=== PATIENT | male | born 1940 | race Caucasian/White ===

== ENCOUNTER 2022-04-28 06:20 | Inpatient (IN) | payer BC, MEDICARE ==
[2022-04-27 10:27] LABS: BASOPHILS % 0.6 % (0.0-1.0); EOSINOPHILS # (AUTO) 0.1 (0.0-0.4); EOSINOPHILS % 1.6 % (0.0-6.0); HEMATOCRIT 45.2 % (38.2-49.6); HEMOGLOBIN 15.4 g/dL (14.0-18.0); LYMPHOCYTES # (AUTO) 1.6 (1.0-3.2); LYMPHOCYTES % 23.5 % (18.0-39.1); MEAN CORPUSCULAR HEMOGLOBIN 31.1 pg (28-32); MEAN CORPUSCULAR HGB CONC 34.1 g/dL (31-35); MEAN CORPUSCULAR VOLUME 91.3 fL (81-99); MONOCYTES # (AUTO) 0.7 (0.2-0.8); MONOCYTES % 9.9 % (4.4-11.3); NEUTROPHILS # (AUTO) 4.4 (2.1-6.9); NEUTROPHILS % 63.8 % (38.7-80.0); PLATELET COUNT 243 x10e3/uL (140-360); RED BLOOD COUNT 4.95 x10e6/uL (4.3-5.7); RED CELL DISTRIBUTION WIDTH 12.3 % (11.7-14.4)
[2022-04-27 10:49] LABS: ALBUMIN 4.6 g/dL (3.5-5.0); ALBUMIN/GLOBULIN RATIO 1.8 (0.8-2.0); ANION GAP 14.9 mmol/L (8-16); CALCIUM 9.7 mg/dL (8.4-10.2); CREATININE, SERUM 0.83 mg/dL (0.72-1.25); POTASSIUM 3.9 mmol/L (3.5-5.1)
[~2022-04-28] VITALS: Ht 172.7 cm; Wt 80.3 kg
[2022-04-28] VITALS (7 sets, daily range): BP systolic 154–165; BP diastolic 69–80
[~2022-04-28 06:20] MED LIST: ALLOPURINOL100 MG PO; DIOVAN80 MG PO; FIBER PO; FLOMAX0.4 MG PO; HYDROCHLOROTH12.5 MG PO; LATANOPROST2.5 ML OU; PRAVASTATIN SOD40 MG PO
[2022-04-28] MEDS ORDERED: CEFTRIAXONE 1 GM VIAL ONE (06:41)
[2022-04-28] MEDS ORDERED: GENTAMICIN 80MG/NS 100 ML 200 ML IV ONE (06:41)
[2022-04-28] MEDS ORDERED: IOPAMIDOL 610MG/1ML 300 MG/ML VIAL IV ONE (08:05)
[2022-04-28] MEDS ORDERED: B&O 60MG R/S 60 MG SUPP PR ONE (08:05)
[2022-04-28] MEDS ORDERED: ACETAMINOPHEN/CODEINE 300MG - 30MG TAB PO PRN (10:15)
[2022-04-28] MEDS ORDERED: ONDANSETRON HCL INJ 2MG/ML 2ML 2 MG/ML VIAL IV PRN (10:15)
[2022-04-28] MEDS ORDERED: PHENAZOPYRIDINE HCL 100 MG TAB PO PRN (10:15)
[2022-04-28] MEDS ORDERED: DIPHENHYDRAMINE HCL 25 MG CAP PO PRN (10:15)
[2022-04-28] MEDS: D5.45%NS/KCL 20MEQ 1,000 ML IV SCH (10:15)
[2022-04-28] MEDS ORDERED: B&O 60MG R/S 60 MG SUPP PR PRN (10:15)
[2022-04-28] MEDS ORDERED: FENTANYL CITRATE/PF 100MCG/2 ML INJ ONE ×2 (10:48→12:29)
[2022-04-28 10:57] LABS: BASOPHILS % 0.2 % (0.0-1.0); EOSINOPHILS # (AUTO) 0.1 (0.0-0.4); EOSINOPHILS % 0.5 % (0.0-6.0); HEMATOCRIT 39.3 % (38.2-49.6); HEMOGLOBIN 13.2 g/dL (14.0-18.0); LYMPHOCYTES # (AUTO) 1.1 (1.0-3.2); LYMPHOCYTES % 9.5 % (18.0-39.1); MEAN CORPUSCULAR HEMOGLOBIN 31.3 pg (28-32); MEAN CORPUSCULAR HGB CONC 33.6 g/dL (31-35); MEAN CORPUSCULAR VOLUME 93.1 fL (81-99); MONOCYTES # (AUTO) 0.3 (0.2-0.8); MONOCYTES % 2.8 % (4.4-11.3); NEUTROPHILS # (AUTO) 9.9 (2.1-6.9); NEUTROPHILS % 86.3 % (38.7-80.0); PLATELET COUNT 201 x10e3/uL (140-360); RED BLOOD COUNT 4.22 x10e6/uL (4.3-5.7); RED CELL DISTRIBUTION WIDTH 12.5 % (11.7-14.4)
[2022-04-28 11:14] LABS: CALCIUM 7.8 mg/dL (8.4-10.2); CREATININE, SERUM 0.75 mg/dL (0.72-1.25)
[2022-04-28] MEDS ORDERED: POVIDONE IODINE 0.05% 0.05 % ML PO ONE (12:00)
[2022-04-28] MEDS ORDERED: SEVOFLURANE INHAL SOLN 250 ML PEN BTL ONE (12:00)
[2022-04-28] MEDS ORDERED: LIDOCAINE HCL 2% LOCAL INJ 5 ML SDV VIAL INJ ONE (12:00)
[2022-04-28] MEDS ORDERED: ONDANSETRON HCL INJ 2MG/ML 2ML 2 MG/ML VIAL ONE (12:00)
[2022-04-28] MEDS ORDERED: PROPOFOL IV EMULSION 10 MG/ML 20 ML VIAL ONE (12:00)
[2022-04-28] MEDS ORDERED: ACETAMINOPHEN 1000 MG/100 ML IV ONE (12:00)
[2022-04-28] MEDS ORDERED: EPHEDRINE SULFATE INJ 50 MG/ML VIAL ONE (12:00)
[2022-04-28] MEDS ORDERED: DEXAMETHASONE SOD PHOS INJ 4 MG/ML SDV ONE (12:00)
[2022-04-28] MEDS: DOCUSATE SODIUM 100 MG CAP PO SCH (18:00)
[2022-04-28] MEDS ORDERED: ACETAMINOPHEN 1000 MG/100 ML IV PRN (18:00)
[2022-04-28] MEDS ORDERED: MAGNESIUM SULFATE 2GM/50ML IV ONE (23:50)
[2022-04-29] VITALS (12 sets, daily range): BP systolic 113–177; BP diastolic 48–84
[2022-04-29] MEDS: D5.45%NS/KCL 20MEQ 1,000 ML IV SCH (01:13)
[2022-04-29 05:33] LABS: BASOPHILS % 0.1 % (0.0-1.0); HEMOGLOBIN 13.1 g/dL (14.0-18.0); LYMPHOCYTES # (AUTO) 1.4 (1.0-3.2); MEAN CORPUSCULAR HEMOGLOBIN 31.1 pg (28-32); MEAN CORPUSCULAR HGB CONC 34.5 g/dL (31-35); MEAN CORPUSCULAR VOLUME 90.3 fL (81-99); MONOCYTES # (AUTO) 1.3 (0.2-0.8); MONOCYTES % 7.4 % (4.4-11.3); NEUTROPHILS # (AUTO) 14.5 (2.1-6.9); NEUTROPHILS % 83.8 % (38.7-80.0); PLATELET COUNT 221 x10e3/uL (140-360); RED BLOOD COUNT 4.21 x10e6/uL (4.3-5.7); RED CELL DISTRIBUTION WIDTH 12.6 % (11.7-14.4)
[2022-04-29 05:51] LABS: ANION GAP 20.1 mmol/L (8-16); CALCIUM 8.2 mg/dL (8.4-10.2); CREATININE, SERUM 0.68 mg/dL (0.72-1.25); POTASSIUM 4.1 mmol/L (3.5-5.1)
[2022-04-29] MEDS: ALLOPURINOL 100 MG TAB PO SCH (08:20)
[2022-04-29] MEDS: DOCUSATE SODIUM 100 MG CAP PO SCH ×2 (08:20→16:05)
[2022-04-29] MEDS: VALSARTAN 80 MG TAB PO SCH (08:20)
[2022-04-29] MEDS: SODIUM BICARBONATE 8.4% 50 ML in SODIUM CHLORIDE 0.45% 1,000 ML IV SCH ×2 (11:01→21:07)
[2022-04-29] MEDS: LEVOFLOXACIN 500MG/D5W 100ML 100 ML IV SCH (11:04)
[2022-04-29] MEDS: NIFEDIPINE CR 30 MG TAB PO SCH (11:04)
[2022-04-29] MEDS: TAMSULOSIN HCL 0.4 MG CAP PO SCH (16:05)
[2022-04-29] MEDS: SENNA-S TABLET PO SCH (16:05)
[2022-04-29] MEDS: LATANOPROST(OPTH) 2.5 ML BTL OU SCH (21:09)
[2022-04-30] VITALS (10 sets, daily range): BP systolic 100–147; BP diastolic 62–70
[2022-04-30 04:54] LABS: BASOPHILS % 0.3 % (0.0-1.0); EOSINOPHILS # (AUTO) 0.3 (0.0-0.4); EOSINOPHILS % 2.3 % (0.0-6.0); HEMATOCRIT 36.4 % (38.2-49.6); HEMOGLOBIN 12.6 g/dL (14.0-18.0); LYMPHOCYTES # (AUTO) 2.1 (1.0-3.2); LYMPHOCYTES % 17.9 % (18.0-39.1); MEAN CORPUSCULAR HEMOGLOBIN 31.1 pg (28-32); MEAN CORPUSCULAR HGB CONC 34.6 g/dL (31-35); MEAN CORPUSCULAR VOLUME 89.9 fL (81-99); MONOCYTES # (AUTO) 1.1 (0.2-0.8); NEUTROPHILS # (AUTO) 7.9 (2.1-6.9); NEUTROPHILS % 68.9 % (38.7-80.0); PLATELET COUNT 215 x10e3/uL (140-360); RED BLOOD COUNT 4.05 x10e6/uL (4.3-5.7); RED CELL DISTRIBUTION WIDTH 12.6 % (11.7-14.4)
[2022-04-30 05:16] LABS: ANION GAP 16.6 mmol/L (8-16); CALCIUM 7.8 mg/dL (8.4-10.2); CREATININE, SERUM 0.69 mg/dL (0.72-1.25); POTASSIUM 3.6 mmol/L (3.5-5.1)
[2022-04-30] MEDS: SODIUM BICARBONATE 8.4% 50 ML in SODIUM CHLORIDE 0.45% 1,000 ML IV SCH (07:59)
[2022-04-30] MEDS: DOCUSATE SODIUM 100 MG CAP PO SCH ×2 (08:00→16:58)
[2022-04-30] MEDS: SENNA-S TABLET PO SCH ×2 (08:00→16:58)
[2022-04-30] MEDS: VALSARTAN 80 MG TAB PO SCH (08:00)
[2022-04-30] MEDS: ALLOPURINOL 100 MG TAB PO SCH (08:00)
[2022-04-30] MEDS: NIFEDIPINE CR 30 MG TAB PO SCH (08:01)
[2022-04-30] MEDS: LEVOFLOXACIN 500MG/D5W 100ML 100 ML IV SCH (08:06)
[2022-04-30] MEDS: MAGNESIUM OXIDE 400 MG TAB PO SCH ×2 (10:17→16:59)
[2022-04-30] MEDS: TAMSULOSIN HCL 0.4 MG CAP PO SCH (16:59)
[2022-04-30] MEDS: LATANOPROST(OPTH) 2.5 ML BTL OU SCH (21:00)
[2022-05-01] VITALS (7 sets, daily range): BP systolic 127–185; BP diastolic 61–85
[2022-05-01 05:21] LABS: BASOPHILS % 0.4 % (0.0-1.0); EOSINOPHILS # (AUTO) 0.2 (0.0-0.4); EOSINOPHILS % 1.8 % (0.0-6.0); HEMATOCRIT 38.5 % (38.2-49.6); LYMPHOCYTES # (AUTO) 2.2 (1.0-3.2); LYMPHOCYTES % 19.6 % (18.0-39.1); MEAN CORPUSCULAR HEMOGLOBIN 31.3 pg (28-32); MEAN CORPUSCULAR HGB CONC 33.8 g/dL (31-35); MEAN CORPUSCULAR VOLUME 92.5 fL (81-99); MONOCYTES # (AUTO) 1.2 (0.2-0.8); MONOCYTES % 10.3 % (4.4-11.3); NEUTROPHILS # (AUTO) 7.6 (2.1-6.9); NEUTROPHILS % 67.5 % (38.7-80.0); PLATELET COUNT 225 x10e3/uL (140-360); RED BLOOD COUNT 4.16 x10e6/uL (4.3-5.7); RED CELL DISTRIBUTION WIDTH 12.5 % (11.7-14.4)
[2022-05-01 05:42] LABS: ANION GAP 16.9 mmol/L (8-16); CALCIUM 8.8 mg/dL (8.4-10.2); CREATININE, SERUM 0.78 mg/dL (0.72-1.25); POTASSIUM 3.9 mmol/L (3.5-5.1)
[2022-05-01] MEDS ORDERED: ONDANSETRON HCL 4 MG ORAL DISINTEGRATING TAB PO PRN (08:15)
[2022-05-01] MEDS ORDERED: LEVOFLOXACIN 500 MG TAB PO SCH (09:00)
[2022-05-01] MEDS: NIFEDIPINE CR 30 MG TAB PO SCH (09:34)
[2022-05-01] MEDS: VALSARTAN 80 MG TAB PO SCH (09:34)
[2022-05-01] MEDS: DOCUSATE SODIUM 100 MG CAP PO SCH ×2 (09:34→17:06)
[2022-05-01] MEDS: SENNA-S TABLET PO SCH ×2 (09:34→17:06)
[2022-05-01] MEDS: ALLOPURINOL 100 MG TAB PO SCH (09:34)
[2022-05-01] MEDS: MAGNESIUM OXIDE 400 MG TAB PO SCH ×2 (09:35→17:06)
[2022-05-01] MEDS: HYDRALAZINE HCL 20 MG/ML VIAL IV PRN ×2 (12:37→17:06)
[2022-05-01] MEDS: TAMSULOSIN HCL 0.4 MG CAP PO SCH (17:06)
== END 2022-05-01 19:25 | disposition home or self-care (01) | DRG 714 ==
LOC: OR 06:20 → PACU V 12:59 → MED/SURG 13:24
PROVIDERS: ADMIT Urology; ATTEND Urology
PROC: BT141ZZ Fluoroscopy of Kidneys, Ureters and Bladder using Low Osmolar Contrast (ICD-10-PCS; 2022-04-28)
PROC: 0T7D8ZZ Dilation of Urethra, Via Natural or Artificial Opening Endoscopic (ICD-10-PCS; 2022-04-28)
PROC: 0T788ZZ Dilation of Bilateral Ureters, Via Natural or Artificial Opening Endoscopic (ICD-10-PCS; principal; 2022-04-28 08:42)
PROC: 0V508ZZ Destruction of Prostate, Via Natural or Artificial Opening Endoscopic (ICD-10-PCS; 2022-04-28 08:42)
DX: C61 Malignant neoplasm of prostate (principal); N40.1 Benign prostatic hyperplasia with lower urinary tract symptoms; R33.8 Other retention of urine; R97.20 Elevated prostate specific antigen [PSA]; E78.5 Hyperlipidemia, unspecified; I10 Essential (primary) hypertension; M10.9 Gout, unspecified; Z88.0 Allergy status to penicillin; R31.0 Gross hematuria; Z20.822 Contact with and (suspected) exposure to COVID-19; R39.14 Feeling of incomplete bladder emptying; N35.912 Unspecified bulbous urethral stricture, male; N32.3 Diverticulum of bladder; N41.9 Inflammatory disease of prostate, unspecified; N43.40 Spermatocele of epididymis, unspecified
CPT/HCPCS: 0223U; 36415; 71046; 74420; 80048; 80053; 83735; 84152; 85025; 88304; 88305; 93005; 94799; C1758; J0360; J0696; J1100; J1580; J1956; J2001; J2405; J3010; J3475